=== PATIENT | male | born 1990 | race Caucasian/White ===

== ENCOUNTER 2017-02-25 10:22 | Day surgery (SDC) | payer BC ==
--- NOTE | ~2017-02-25 | OP ---
Record Of Operation [facility] [address] [place]. [address] NAME: JEFFERY CASSIDY : 89 STATUS : [facility]#: [id number] AGE: 26 ADM/REG DATE : 02/25/17 MR#: [id number] REPORT SERV DATE: 02/25/17 DICTATED BY: MARTIN COCHRAN DATE: 02/25/17 REPORT STATUS : Draft TRANSCRIBED BY: MODShane DATE: 02/25/17 DATE OF PROCEDURE: 02/25/2017 PREOPERATIVE DIAGNOSIS: Bilateral reducible inguinal hernias, left greater than right. POSTOPERATIVE DIAGNOSIS: Bilateral reducible inguinal hernias, left greater than right. PROCEDURE: Robotic reducible bilateral indirect inguinal hernia repairs with mesh. ANESTHESIA: General. CLINICAL OUTCOMES MANAGER: Yuniel. COMPLICATIONS: None. DRAINS: None. ESTIMATED BLOOD LOSS: 30 mL. FINDINGS: The patient was noted to have indirect inguinal hernias. Upon insertion of laparoscope, the left defect was significantly larger than the right. There was no evidence of direct or femoral hernias. The two pieces of mesh were overlapped in the midline covering the entire myopectineal space from iliac crest to iliac crest. OPERATIVE TECHNIQUE: The patient was brought to the operating room and placed on the table in supine position. He had preoperative IV antibiotics. He had sequential hose in place. He voided prior to procedure. He underwent general endotracheal anesthesia and was prepped and draped in sterile fashion and a time-out was completed. Local anesthesia was instilled to the supraumbilical skin. A #15 blade knife was used to make a longitudinal incision in the midline supraumbilically. A Veress needle was inserted and a water drop test was safely performed. A 12 mm Optiview trocar was then inserted under direct visualization. There was no evidence of Veress or trocar injury. The patient then had 8 mm trocars placed in the right and left midclavicular lines under direct visualization longitudinal to the umbilical trocar. The patient was then placed in Trendelenburg and the laparoscope was inserted with the above aforementioned findings. At this point, the dissection began initially on the left side. The peritoneum superiorly at the median umbilical ligament was scored several centimeters above the superior aspect of the hernia. The peritoneum was then divided toward the anterior iliac spine using scissors. A flap was then created using blunt dissection to dissect the peritoneal laterally until iliopubic tract and transversus arch were identified. Immediately, the dissection continued inferiorly parallel to the median umbilical ligament until Eric's ligament, iliopubic tract, and transversus arch were identified. There was no evidence of direct or femoral hernia. The dissection continued below Eric's ligament 2 cm minimum. This dissection was carried more medial to the right side as well, so that the right side could be done and the two meshes could be overlapped. At this juncture, the indirect inguinal hernia sac was carefully dissected away from the cord structures that were identified and preserved throughout the procedure. This dissection took approximately 30 Record Of Operation [facility] [id number] [place]. [address] NAME: JEFFERY CASSIDY : 89 STATUS : [facility]#: [id number] AGE: 26 ADM/REG DATE : 02/25/17 MR#: [id number] REPORT SERV DATE: 02/25/17 DICTATED BY: MARTIN COCHRAN DATE: 02/25/17 REPORT STATUS : Draft TRANSCRIBED BY: CUCA DATE: 02/25/17 minutes due to the size of the defect. The peritoneum was then reduced several centimeters proximal to where the vas joined the cord structures on the left. Attention was then turned to the right side. The right hernia was repaired as exactly described as for the left. There was a branch of the inferior epigastric vein and the vein itself was bleeding during the mobilization of the peritoneal flap. This was attempted to be cauterized and eventually was clipped proximally and distally and left in situ. The hernia on the right side was dissected exactly as described for the right and the peritoneum was reduced as described previously. At this juncture, the ProGrip mesh that had been previously inserted upon insertion of the laparoscope was placed with the green portion medially and was unfolded to cover the entire myopectineal space on the right side first, and then the left side, the two green markers for the mesh were reapproximated in the midline. The entire pelvic floor was covered with mesh. There was no evidence of any other abnormalities or bleeding. The peritoneum was then reapproximated using a single 3-0 running absorbable V-Loc suture. At this point, the needle was removed from the abdomen under direct visualization and the pneumoperitoneum was aspirated as there was no evidence of any other visual abnormalities. The anterior fascia was reapproximated using a [id number] Vicryl suture anteriorly at the supraumbilical trocar site. The skin edges were then reapproximated using interrupted subcuticular Monocryl sutures. Dermabond was applied, and he was extubated and taken to the recovery room in stable condition. All sponge and needle counts reported correct. CAROL/MODL Martin Cochran M.D. / [id number] CC: Martin Cochran M.D. UNKNOWN Justin Prasad MD
[~2017-02-25 10:22] MED LIST: CLARIT10 PO
== END 2017-02-25 17:15 | disposition home or self-care (01) ==
LOC: SDC 10:22
PROVIDERS: Surgery
PROC: 8E0W0CZ Robotic Assisted Procedure of Trunk Region, Open Approach (ICD-10-PCS; 2017-02-25)
PROC: 0YUA0JZ Supplement Bilateral Inguinal Region with Synthetic Substitute, Open Approach (ICD-10-PCS; principal; 2017-02-25 12:00)
DX: K40.20 Bilateral inguinal hernia, without obstruction or gangrene, not specified as recurrent (principal); J32.9 Chronic sinusitis, unspecified; Z87.891 Personal history of nicotine dependence; Z90.89 Acquired absence of other organs; Z79.899 Other long term (current) drug therapy
CPT/HCPCS: A9270-GY; C1781; J0690; J1885; J2250; J2405; J2710; J2795; J3010